=== PATIENT | male | born 1950 | race Caucasian/White ===

== ENCOUNTER → 2017-03-02 | Outpatient (CLI) | payer MEDICARE, BC ==
--- NOTE | 2017-03-02 12:30 | US ---
EXAMINATION TYPE: US carotid duplex BILAT DATE OF EXAM: 03/02/2017 COMPARISON: NONE CLINICAL HISTORY: 66-year-old male I65.29 Occlusion and stenosis of unspecified carotid. Dizziness. TECHNIQUE: Carotid duplex ultrasound examination. Indirect Doppler criteria was utilized. FINDINGS: Valadez scale images show no significant atherosclerotic change at the bifurcations. EXAM MEASUREMENTS: RIGHT: Peak Systolic Velocity (PSV) cm/sec ----- Right CCA: 94.3 ----- Right ICA: 92.1 ----- Right ECA: 86.7 ICA/CCA ratio: 1.0 RIGHT: End Diastole cm/sec ----- Right CCA: 26.0 ----- Right ICA: 27.1 ----- Right ECA: 14.7 LEFT: Peak Systolic Velocity (PSV) cm/sec ----- Left CCA: 82.9 ----- Left ICA: 68.7 ----- Left ECA: 66.9 ICA/CCA ratio: 0.8 LEFT: End Diastole cm/sec ----- Left CCA: 27.3 ----- Left ICA: 30.2 ----- Left ECA: 12.8 VERTEBRALS (direction of flow): Right Vertebral: Antegrade Left Vertebral: Antegrade Rhythm: Normal IMPRESSION: No hemodynamically significant stenosis appreciated in either internal carotid artery. Criteria for Assigning % of Stenosis / Diameter reduction (Estimation based on the indirect measurements of the internal carotid artery velocities (ICA PSV). 1. Normal (no stenosis)=ICA PSV < 125 cm/s: ratio < 2.0: ICA EDV<40 cm/s. 2. Less than 50% stenosis=ICA PSV < 125 cm/s: ratio < 2.0: ICA EDV<40 cm/s. 3. 50 to 69% stenosis=ICA PSV of 125 to 230 cm/s: ration 2.0 ? 4.0: ICA EDV 40-100 cm/s. 4. Greater than 70% stenosis to near occlusion= ICA PSV > 230 cm/s: ratio > 4.0: ICA EDV > 100 cm/s. 5. Near occlusion= ICA PSV velocities may be low or undetectable: variable ratio and ICA EDV. 6. Total occlusion=unable to detect flow.
== END | disposition home or self-care (01) ==
LOC: RADUSWWP 10:55
PROVIDERS: ATTEND Family Medicine
DX: I65.29 Occlusion and stenosis of unspecified carotid artery (principal)
CPT/HCPCS: 93880

== ENCOUNTER → 2018-06-23 | Outpatient (CLI) | payer MEDICARE ==
--- NOTE | 2018-06-23 15:18 | CT ---
EXAMINATION TYPE: CT chest w con DATE OF EXAM: 06/23/2018 COMPARISON: Radiograph 04/28/2018 HISTORY: 67-year-old male Chronic cough TECHNIQUE: Contiguous axial scanning of the chest after the administration of 100 mL of Isovue 300. Coronal/sagittal reconstructions performed. CT DLP: 295mGycm. Automatic exposure control utilized for a dose reduction. FINDINGS: Moderate bilateral gynecomastia. Heart normal size without pericardial effusion. Aorta normal caliber with conventional arch vessel branching anatomy. Scattered nonenlarged mediastinal lymph nodes. No thoracic lymphadenopathy by CT size criteria. Mild dependent atelectasis in the mid and lower lungs. 3 mm peripheral right midlung pulmonary nodule axial image 28. No consolidation or pleural effusion. Central airways appear clear. Visualized upper abdomen shows a hilar splenule in mild stool burden. Bones: Mild degenerative disc disease mid to lower thoracic spine. IMPRESSION: 1. Mild bilateral dependent atelectasis. Otherwise, no acute pulmonary process. 2. A 3 mm peripheral right midlung pulmonary nodule. One-year follow-up CT to reassess.
== END | disposition home or self-care (01) ==
LOC: RADCTMAIN 10:52
PROVIDERS: ATTEND Internal Medicine
DX: J98.11 Atelectasis (principal); R91.1 Solitary pulmonary nodule
CPT/HCPCS: 82565; 84520; 71260; 36415; Q9967

== ENCOUNTER → 2018-07-22 | Outpatient (CLI) | payer MEDICARE ==
[2018-07-22 11:44] LABS: Basophils % (A) 1 %; Eosinophils # (A) 0.1 k/uL (0-0.7); Eosinophils % (A) 1 %; HCT 40.7 % (39.0-53.0); HGB 13.5 gm/dL (13.0-17.5); Lymphocytes # (A) 2.1 k/uL (1.0-4.8); Lymphocytes % (A) 27 %; MCH 29.9 pg (25.0-35.0); MCHC 33.2 g/dL (31.0-37.0); Mean Platelet Volume 9.1; Monocytes # (A) 0.4 k/uL (0-1.0); Monocytes % (A) 6 %; Neutrophils % (A) 64 %; Platelet Count 166 k/uL (150-450); RBC 4.53 m/uL (4.30-5.90); WBC 7.8 k/uL (3.8-10.6)
[2018-07-22 18:15] LABS: Immunoglobulin E 8.62 IU/mL (0.00-114.00)
[2018-07-22 18:39] LABS: Cat Epith & Dander IgE <0.10 kU/L; Cockroach IgE <0.10 kU/L; Dermato. farinae IgE 0.16 kU/L; Dog Dander IgE <0.10 kU/L
[2018-07-22 18:41] LABS: Alternaria alternata IgE <0.10 kU/L; Birch IgE <0.10 kU/L; Maple (Box Elder) IgE <0.10 kU/L
[2018-07-22 18:42] LABS: Elm IgE <0.10 kU/L; Oak IgE <0.10 kU/L; Ragweed,Common IgE <0.10 kU/L
[2018-07-22 18:43] LABS: Red Top (Bentgrass) IgE 0.39 kU/L
[2018-07-23 10:56] LABS: IgG Subclass 3 48.3 mg/dL (11.0-85.0); IgG Subclass 4 10.4 mg/dL (3.0-175.0)
== END ==
LOC: LABWHC1 09:48
PROVIDERS: ATTEND Internal Medicine
DX: J68.3 Other acute and subacute respiratory conditions due to chemicals, gases, fumes and vapors (principal); J45.991 Cough variant asthma; K21.9 Gastro-esophageal reflux disease without esophagitis
CPT/HCPCS: 36415; 82785; 82787; 85025; 86003

== ENCOUNTER → 2018-07-25 | Outpatient (CLI) | payer MEDICARE ==
--- NOTE | 2018-07-25 16:10 | MR ---
EXAMINATION TYPE: MR shoulder RT wo con DATE OF EXAM: 07/25/2018 COMPARISON: None HISTORY: R shoulder pain TECHNIQUE: Multiplanar, multisequence imaging of the right shoulder is performed without contrast. FINDINGS: Rotator Cuff: Appears to be a perforation within the distal supraspinatus tendon. There is increased signal within the subacromial bursa on T2 weighted sequences. Subchondral cyst formation near the exp ected insertion of the supraspinatus tendon is present. Findings are suggestive for partial tear with out retraction. Infraspinatus and subscapularis tendons appear intact. Teres minor where visualized a ppears intact. Acromioclavicular Joint: No significant hypertrophy is present. Mild inferior spurring is present. Th is can contribute to impingement syndrome. Glenohumeral Joint: Humeral head articulates with the glenoid. Labrum: Superior glenoid labrum is poorly visualized. There is increased signal within this region. A nterior and posterior glenoid labrum is somewhat better visualization. Injury in degenerative change of the superior glenoid labrum should be considered. Biceps Tendon: Typical Long head of the biceps tendon is not identified. Tiny low intensity signal ar ea may be within the groove could be residual fibers. Fluid is within the biceps tendon groove. Corre late for biceps tendon tear or atrophy Bone marrow signal: No focal abnormal marrow signal is appreciated. Other: There is a moderate joint effusion. Subchondral cysts are evident within the humeral head IMPRESSION: 1. Findings suggestive of a partial tear of the supraspinatus tendon without retraction or muscle atr ophy. 2. Moderate joint effusion. 3. Subchondral cyst near the insertion of the supraspinatus tendon can be associated with tear. 4. Very little long head biceps tendon visualized with fluid within the bicipital groove. Partial tea r should be suspected.
== END | disposition home or self-care (01) ==
LOC: RADMRIMAIN 14:26
PROVIDERS: ATTEND Orthopaedic Surgery
DX: M25.411 Effusion, right shoulder (principal); M67.813 Other specified disorders of tendon, right shoulder

== ENCOUNTER 2018-08-16 08:49 | Day surgery (SDC) | payer MEDICARE ==
--- NOTE | 2018-08-15 09:02 | HP ---
HISTORY AND PHYSICAL CHIEF COMPLAINT: Right shoulder pain. HISTORY OF PRESENT ILLNESS: The patient is a 67-year-old, right-hand dominant, retired gentleman who presents with progressive right shoulder pain after a recent injury while pulling. He notes pain with overhead activity and at night. He has tried medications with only partial temporary relief. PAST MEDICAL HISTORY: Significant for reflux, hyperlipidemia, and Raynaud's. PAST SURGICAL HISTORY: Significant for previous carpal tunnel release, right rotator cuff repair, left rotator cuff repair, and colonoscopy. CURRENT ALLERGIES: He notes allergies to PENICILLIN. FAMILY HISTORY: Significant for cancer. SOCIAL HISTORY: Negative for current tobacco or alcohol use. REVIEW OF SYSTEMS: Sixteen point review of systems otherwise reviewed and is noncontributory. PHYSICAL EXAMINATION: On examination, the patient is approximately 5 foot 7, 185 pounds of mesomorphic habitus. HEENT exam is nonfocal. Neck is supple. On examination of his right shoulder, he is tender about the anterior subacromial space. He has moderate subacromial crepitus. 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 Active range of motion of the right shoulder, forward elevation, 155 degrees external rotation, with arm at side 70 degrees, internal rotation to L2. Motor strength is 5-/5 for abduction and external rotation. Impingement test, Neer test are positive. His distal neurovascular exam otherwise appears intact in the right upper extremity. MRI report for the right shoulder 07/25/2018 shows a partial tear of the supraspinatus tendon with a possible proximal biceps rupture. IMPRESSION: Symptomatic right rotator cuff tear/proximal biceps rupture. RECOMMENDATION: I talked to the patient at length regarding his condition along with treatment options. At this point, he is quite symptomatic and opts to proceed with surgery. We will plan to proceed with arthroscopic evaluation with possible biceps debridement along with rotator cuff repair versus debridement. Risks and benefits were discussed at length in layman's terms. We will likely perform that as an outpatient procedure. MMODL / IJN: [id number] /
[~2018-08-16 08:49] MED LIST: CLINDAMYCIN 900 MG in DEXTROSE 5% IN WATER 50 ML IVPB ONE; DEXAMETHASONE SOD PHOSPHATE 10 MG/ML 1 ML VIAL IV ONE; HYDROmorphone 0.5 MG/0.5 ML SYRINGE IVP PRN; LACTATED RINGERS 1,000 ML IV SCH; MIDAZOLAM (PF) 2 MG/2 ML VIAL IV PRN; ONDANSETRON 4 MG/2 ML VIAL IVP ONE
[2018-08-16] MEDS ORDERED: LIDOCAINE 1% 20 ML VIAL (10MG/ML) FOR IV START INTRADERMA ONE (09:39)
--- NOTE | 2018-08-16 10:21 | P.ONQ ---
Anesthesiology Proc Note - PNB - Peripheral Nerve Block Performed Right Interscalene Single Time Out Performed: Yes Procedure Start Time: 10:05 Procedure Stop Time: 10:11 Indication: Analgesia, Requested by physician Sedation Type: Sedate with meaningful contact maintained Preparation: Sterile Dressing Position: Supine Catheter: None Needle Types: Facet Needle Size: 50mm (2") Needle Gauge: 21 Injectate: 0.5% Ropivacaine (see comment for volume) (30 ml) Blood Aspirated: No Pain Paresthesia on Injection Noted: No Resistance on Injection: Normal Events: Uneventful and Well Tolerated
[2018-08-16] MEDS ORDERED: PROPOFOL 10 MG/ML 20 ML VIAL IV ONE (10:58)
[2018-08-16] MEDS ORDERED: SUCCINYLCHOLINE CHLORIDE 100 MG/5 ML SYR IV ONE (10:58)
[2018-08-16] MEDS ORDERED: LIDOCAINE 1% INJ 10MG/ML (20 ML MDV) ONE (10:58)
[2018-08-16] MEDS ORDERED: ROPIVACAINE 5 MG/ML 30 ML VIAL ONE (10:58)
[2018-08-16] MEDS ORDERED: MIDAZOLAM 2 MG/2 ML VIAL ONE (10:58)
[2018-08-16] MEDS ORDERED: EPINEPHrine (PF) 1 ML in SODIUM CHLORIDE 0.9% IRRIGATIO 3,000 ML IRRIGATION ONE ×8 (11:27)
--- NOTE | 2018-08-16 12:13 | P.OP ---
Date of Procedure: 08/16/18 Preoperative Diagnosis: Right shoulder symptomatic rotator cuff tear/proximal biceps rupture Postoperative Diagnosis: 1 cm full-thickness rotator cuff tear/proximal biceps rupture/type II superior labral tear Procedure(s) Performed: Right shoulder arthroscopic subacromial decompression/superior labral debridement with biceps debridement/rotator cuff repair Implants: Arthrex 5.5 mm swivel lock anchor 1 [facility] Surgeon: Harman Godwin Card Cutter Helper #1: Malik Cody Estimated Blood Loss (ml): 10 Pathology: none sent Condition: stable Disposition: PACU Indications for Procedure: The patient's a 67-year-old male who presents with a recent injury to his right shoulder with persistent pain and symptoms despite conservative measures. After discussion of the risks and benefits of operative intervention versus continued conservative measures he opted to proceed with surgery. Operative risks to include infection, neurovascular injury, development of blood clots, possible incomplete resolution of symptoms, possible postoperative stiffness, possible tendon rerupture and need for subsequent procedures was discussed. Informed consent was obtained. Operative Findings: As below Description of Procedure: The patient was brought to the operating room, and after induction of general anesthesia was placed in a beachchair position. A preoperative interscalene block was placed for postoperative analgesia. I examined the right shoulder. There was no gross block to passive motion or gross glenohumeral instability. The right upper extremity was prepped and draped in normal fashion. The bony outlines the acromion, distal clavicle, and coracoid process were outlined with a skin marker. The glenohumeral joint was inflated with 50 mL of saline util izing a spinal needle from posterior approach. A posterior portal was made through a 5 mm skin incision 1 cm medial and inferior to the posterior lateral border time. A blunt trocar was used to easily into the joint. Diagnostic arthroscopy was performed. An anterior portal was made just lateral to the coracoid process entering the joint above the subscapularis tendon. The subscapularis tendon appeared to be intact. Anterior labrum was intact. The inferior recess was inspected. The posterior labrum was intact. There was a rupture of the long head of the biceps involving interarticular portion. The remaining stump was debrided with a motorized shaver. A type II superior labral tear was noted and this was debrided back to stable base with a motorized shaver. On inspection the rotator cuff, a 1 cm full-thickness tear involving the supraspinatus was noted. A lateral portal was made 2 centimeters inferior to the anterior lateral border of the acromion. The soft tissue on the undersurface of the acromion was debrided with a motorized shaver and electrocautery clearly defining the anterior medial and lateral borders as well as the distal clavicle. An anterior inferior acromioplasty was performed with a motorized diaz starting anterolateral, then extending this posteriorly, then extending this medially. I converted to a flat acromion and this was verified in the posterior and lateral viewing portals. The greater tuberosity was lightly decorticating with a shaver down to a bleeding bony surface. A #2 fiber tape was passed through the rotator cuff with a scThermalTherapeuticSystemsion suture passer. These were then secured laterally with the 5.5 mm swivel lock anchor. Good purchase was obtained. Final arthroscopic view showed adequate compression at the footprint. The arthroscope was then removed. The portals were closed with simple 3-0 nylon sutures. A sterile dressing was applied in addition to an abductor brace. The patient was then awoken from general anesthesia and t ransferred to recovery room in good condition. Blood loss was estimated at 10 mL. No complications were incurred. Sponge and needle counts were correct in the case. Khanh LYLES assisted and the major components of the case to include arm positioning, anchor placement, and rotator cuff repair.
[2018-08-16 12:29] VITALS: TEMP 97
[2018-08-16 12:30] VITALS: RESP 16
[2018-08-16] MEDS ORDERED: ONDANSETRON 4 MG/2 ML VIAL IVP ONE (13:38)
[2018-08-16 14:06] VITALS: BP 135/84; PULSE 60
== END 2018-08-16 14:53 | disposition home or self-care (01) ==
LOC: OR 08:49
PROVIDERS: ATTEND Orthopaedic Surgery
DX: M75.101 Unspecified rotator cuff tear or rupture of right shoulder, not specified as traumatic (principal); S46.211A Strain of muscle, fascia and tendon of other parts of biceps, right arm, initial encounter; S43.431A Superior glenoid labrum lesion of right shoulder, initial encounter; X50.9XXA Other and unspecified overexertion or strenuous movements or postures, initial encounter; K21.9 Gastro-esophageal reflux disease without esophagitis; E78.5 Hyperlipidemia, unspecified; I73.00 Raynaud's syndrome without gangrene; J45.909 Unspecified asthma, uncomplicated; Z79.1 Long term (current) use of non-steroidal anti-inflammatories (NSAID); Z88.0 Allergy status to penicillin
CPT/HCPCS: 64415; 29826; 29827; C1713 ×2; C1894; J2250 ×2; J1100; J2405; J0171; J2001; J2795; J0330; J2704

== ENCOUNTER → 2019-03-17 | Day surgery (SDC) | payer MEDICARE ==
[2019-03-15 13:04] VITALS: BMI 28.8
[~2019-03-17] MED LIST changes: -CLINDAMYCIN 900 MG in DEXTROSE 5% IN WATER 50 ML IVPB ONE; -DEXAMETHASONE SOD PHOSPHATE 10 MG/ML 1 ML VIAL IV ONE; -HYDROmorphone 0.5 MG/0.5 ML SYRINGE IVP PRN; +LACTATED RINGERS 1,000 ML IV ONE; +LIDOCAINE 1% 20 ML VIAL (10MG/ML) FOR IV START INTRADERMA PRN; -MIDAZOLAM (PF) 2 MG/2 ML VIAL IV PRN; -ONDANSETRON 4 MG/2 ML VIAL IVP ONE; +PROPOFOL 10 MG/ML 20 ML VIAL IV ONE
[2019-03-17 09:22] VITALS: TEMP 96.7
--- NOTE | 2019-03-17 10:31 | P.PCN ---
Date of Procedure: 03/17/19 Procedure(s) Performed: BRIEF HISTORY: Patient is a 68-year-old pleasant white male scheduled for an elective colonoscopy as a part of evaluation of prior history of colon polyps. Last colonoscopy was 5 years ago. PROCEDURE PERFORMED: Colonoscopy. PREOPERATIVE DIAGNOSIS: History of colon polyps. IV sedation per Anesthesia. PROCEDURE: After informed consent was obtained, the patient, was brought into the endoscopy unit. IV sedation was administered by Anesthesia under continuous monitoring. Digital rectal examination was normal. Initially the Olympus CF-160 flexible video colonoscope was then inserted in the rectum, gradually advanced into the cecum without any difficulty. Careful examination was performed as the scope was gradually being withdrawn. Ileocecal valve and the appendiceal orifice were visualized and appeared normal. Prep was excellent. Mucosa of the cecum, ascending colon, transverse colon, descending colon, sigmoid colon, and rectum appeared normal. Retroflexion was performed in the rectum and no lesions were seen. The patient tolerated the procedure well. IMPRESSION: Normal-appearing colon from rectum to cecum with no evidence of colorectal neoplasia. RECOMMENDATIONS: Findings of this examination were discussed with the patient as well as his family. He was advised to have a repeat surveillance colonoscopy in 5 years from now because of the prior history of colon polyps.
[2019-03-17 10:35] VITALS: RESP 16
[2019-03-17 11:19] VITALS: BP 136/64; PULSE 67
== END ==
LOC: ORWHC2ENDO 09:00
PROVIDERS: ATTEND Internal Medicine Gastroenterology
DX: Z86.010 Personal history of colon polyps (principal); Z88.0 Allergy status to penicillin; Z98.890 Other specified postprocedural states; Z97.2 Presence of dental prosthetic device (complete) (partial)
CPT/HCPCS: 45378; J2704

== ENCOUNTER 2022-03-19 03:34 | Emergency (ER) | payer MEDICARE ==
[2022-03-19] MEDS ORDERED: SODIUM CHLORIDE 0.9% 1,000 ML IV STA (04:37)
[2022-03-19] MEDS ORDERED: KETOROLAC 15 MG/ML 1 ML VIAL IVP STA (04:37)
[2022-03-19] MEDS ORDERED: MORPHINE SULFATE 4 MG/ML SYRINGE IV STA (04:37)
[2022-03-19] MEDS ORDERED: ONDANSETRON 4 MG/2 ML VIAL IVP STA ×2 (04:37→09:08)
--- NOTE | 2022-03-19 04:37 | ED ---
Abdominal Pain HPI - General Source: patient, RN notes reviewed, old records reviewed Mode of arrival: ambulatory - History of Present Illness MD Complaint: abdominal pain, flank pain (Left-sided) -: hour(s) Location: LLQ, suprapubic, L flank Radiation: L flank Migration to: suprapubic Severity: severe Severity scale (1-10): 9 Quality: stabbing, sharp Consistency: constant Improves With: nothing Worsens With: nothing Associated Symptoms: nausea Treatments Prior to Arrival: other (0) <Kapil Asif - Last Filed: 03/19/22 07:06> <Collins Fuentes - Last Filed: 03/19/22 09:20> - General Chief Complaint: Urogenital Stated Complaint: Left side pain Time Seen by Provider: 03/19/22 04:05 - History of Present Illness Initial Comments: This is a 71-year-old male to the emergency department for evaluation of severe abdominal pain severe left lower quadrant abdominal pain in his testicles that woke him up from sleep. Patient states he has had kidney stones before this feels different this feels more like episode disease had of pancreatitis. Patient has no fevers no travel history no sick contacts no other complaints (Kapil Asif) - Related Data Previous Rx's Medication Instructions Recorded Ondansetron Odt [Zofran Odt] 4 mg PO Q8HR PRN 2 Days #6 tab 03/19/22 Tamsulosin HCl [Flomax] 0.4 mg PO DAILY 7 Days #7 capsule 03/19/22 Allergies Allergy/AdvReac Type Severity Reaction Status Date / Time Penicillins Allergy Swelling Verified 03/15/19 12:56 Review of Systems ROS Other: All systems not noted in ROS Statement are negative. <Kapil Asif - Last Filed: 03/19/22 07:06> ROS Other: All systems not noted in ROS Statement are negative. <Collins Fuentes - Last Filed: 03/19/22 09:20> ROS Statement: Those systems with pertinent positive or pertinent negative responses have been documented in the HPI. Past Medical History Past Medical History: Asthma, Osteoarthritis (OA) Additional Past Medical History / Comment(s): COLON POLYPS. NO INHALER USE FOR ASTHMA (WORK RELATED, CHEMICALS, PATIENT WAS A [employer]). History of Any Multi-Drug Resistant Organisms: None Reported Past Surgical History: Orthopedic Surgery Additional Past Surgical History / Comment(s): ERIKA. SHOULDER SURGERIES. LEFT WRIST CARPAL TUNNEL. EYELID SURGERY., COLONOSCOPY, RT SHOULDER SX-08/2018 Past Anesthesia/Blood Transfusion Reactions: No Reported Reaction Additional Past Anesthesia/Blood Transfusion Reaction / Comment(s): SLOW TO WAKE UP. Past Psychological History: No Psychological Hx Reported Past Alcohol Use History: Rare Past Drug Use History: None Reported - Past Family History Father Family Medical History: Cancer Additional Family Medical History / Comment(s): MELANOMA, SALIVARY <Kapil Asif - Last Filed: 03/19/22 07:06> General Exam General appearance: alert, in no apparent distress Head exam: Present: atraumatic, normocephalic, normal inspection Eye exam: Present: normal appearance, PERRL, EOMI. Absent: scleral icterus, conjunctival injection, periorbital swelling ENT exam: Present: normal exam, mucous membranes moist Neck exam: Present: normal inspection. Absent: tenderness, meningismus, lymphadenopathy Respiratory exam: Present: normal lung sounds bilaterally. Absent: respiratory distress, wheezes, rales, rhonchi, stridor Cardiovascular Exam: Present: regular rate, normal rhythm, normal heart sounds. Absent: systolic murmur, diastolic murmur, rubs, gallop, clicks GI/Abdominal exam: Present: soft, normal bowel sounds. Absent: distended, tenderness, guarding, rebound, rigid Extremities exam: Present: normal inspection, full ROM, normal capillary refill. Absent: tenderness, pedal edema, joint swelling, calf tenderness Back exam: Present: normal inspection Neurological exam: Present: alert, oriented X3, CN II-XII intact Psychiatric exam: Present: normal affect, normal mood Skin exam: Present: warm, dry, intact, normal color. Absent: rash <Kapil Asif - Last Filed: 03/19/22 07:06> Course <Kapil Asif Last Filed: 03/19/22 07:06> Vital Signs 03/19/22 03/19/22 03:59 09:16 Temperature 98 F 98.2 F Pulse Rate 70 78 Respiratory 19 16 Rate Blood Pressure 126/88 139/74 O2 Sat by Pulse 100 98 Oximetry - Reevaluation(s) Reevaluation #1: 03/19/22 07:07 Medical records reviewed (Kapil Asif) Reevaluation #2: 03/19/22 07:07 Patient's pain is controlled (Kapil Asif) Medical Decision Making - Lab Data Result diagrams: 03/19/22 04:47 03/19/22 04:47 <Kapil Asif - Last Filed: 03/19/22 07:06> - Lab Data Result diagrams: 03/19/22 04:47 03/19/22 04:47 <Collins Fuentes - Last Filed: 03/19/22 09:20> - Medical Decision Making Patient was sign out to me pending results of CT imaging. They suspected left- sided kidney stone which was supported by CT imaging. CT is interpreted by myself revealed a 3 mm minimally obstructive uropathy on the left. There was also questionable scarring versus other etiologies seen in the patient's pancr eas. Remainder the labs are unremarkable except for hematuria. No signs of infection at this time. On reevaluation, patient's pain is improved, nausea is controlled. We discussed results of his imaging including the pancreas findings. He does have a history of pancreatitis which she attributes to these findings. I did recommend that he obtain repeat imaging in 3-6 months which he was in agreement. He'll be discharged home with outpatient urology follow-up. He will begin Flomax, Zofran. [id number] analgesic medication should manage his pain. He was in agreement this plan. Strict return precautions were discussed. I will provide the patient with a prescription for Flomax, ODT Zofran. I instructed the patient to follow up with their PCP in the next 1-3 days. I pr ovided contact information for follow up with urology. I explained that the patient should return to the emergency department if they experience any worsening symptoms. Strict return precautions were discussed with the patient. The patient expressed understanding of these instructions. I answered all questions that the patient had. The patient was discharged home in good condition with their prescriptions and follow up information. (Collins Fuentes) - Lab Data Lab Results 03/19/22 03/19/22 03/19/22 Range/Units 04:47 04:47 07:31 WBC 8.7 (3.8-10.6) k/uL RBC 4.36 (4.30-5.90) m/uL Hgb 13.5 (13.0-17.5) gm/dL Hct 38.3 L (39.0-53.0) % MCV 88.0 (80.0-100.0) fL MCH 31.1 (25.0-35.0) pg MCHC 35.3 (31.0-37.0) g/dL RDW 12.9 (11.5-15.5) % Plt Count 168 (150-450) k/uL MPV 10.4 Neutrophils % 77 % Lymphocytes % 15 % Monocytes % 5 % Eosinophils % 1 % Basophils % 1 % Neutrophils # 6.7 (1.3-7.7) k/uL Lymphocytes # 1.3 (1.0-4.8) k/uL Monocytes # 0.5 (0-1.0) k/uL Eosinophils # 0.1 (0-0.7) k/uL Basophils # 0.0 (0-0.2) k/uL Sodium 140 (137-145) mmol/L Potassium 4.0 (3.5-5.1) mmol/L Chloride 105 (98-107) mmol/L Carbon Dioxide 29 (22-30) mmol/L Anion Gap 6 mmol/L BUN 16 (9-20) mg/dL Creatinine 1.10 (0.66-1.25) mg/dL Est GFR (CKD-EPI)AfAm 78 (>60 ml/min/1.73 sqM) Est GFR (CKD-EPI)NonAf 68 (>60 ml/min/1.73 sqM) Glucose 110 H (74-99) mg/dL Calcium 8.5 (8.4-10.2) mg/dL Total Bilirubin 0.9 (0.2-1.3) mg/dL AST 29 (17-59) U/L ALT 23 (4-49) U/L Alkaline Phosphatase 67 (38-126) U/L Total Protein 6.8 (6.3-8.2) g/dL Albumin 4.2 (3.5-5.0) g/dL Amylase 55 (30-110) U/L Lipase 123 (23-300) U/L Urine Color Yellow Urine Appearance Clear (Clear) Urine pH 8.5 H (5.0-8.0) Ur Specific [place] 1.023 (1.001-1.035) Urine Protein 1+ H (Negative) Urine Glucose (UA) Negative (Negative) Urine Ketones Negative (Negative) Urine Blood Moderate H (Negative) Urine Nitrite Negative (Negative) Urine Bilirubin Negative (Negative) Urine Urobilinogen <2.0 (<2.0) mg/dL Ur Leukocyte Esterase Negative (Negative) Urine RBC 181 H (0-5) /hpf Urine WBC 2 (0-5) /hpf Urine Mucus Occasional H (None) /hpf Disposition <Kapil Asif - Last Filed: 03/19/22 07:06> Is patient prescribed a controlled substance at d/c from ED?: No Time of Disposition: 08:20 <Collins Fuentes - Last Filed: 03/19/22 09:20> Clinical Impression: Kidney stone on left side Disposition: HOME SELF-CARE Condition: Good Instructions (If sedation given, give patient instructions): Kidney Stones (ED) Additional Instructions: follow up for repeat CT imaging for pancreas scarring/concern for rule out cancer. Prescriptions: Tamsulosin HCl [Flomax] 0.4 mg PO DAILY 7 Days #7 capsule Ondansetron Odt [Zofran Odt] 4 mg PO Q8HR PRN 2 Days #6 tab PRN Reason: Nausea Referrals: Mina Will DO [Primary Care Provider] - 1-2 days Jared Lazo MD [STAFF PHYSICIAN] - 1-2 days
[2022-03-19 04:56] LABS: Basophils % (A) 1 %; Eosinophils # (A) 0.1 k/uL (0-0.7); Eosinophils % (A) 1 %; HCT 38.3 % (39.0-53.0); HGB 13.5 gm/dL (13.0-17.5); Lymphocytes # (A) 1.3 k/uL (1.0-4.8); Lymphocytes % (A) 15 %; MCH 31.1 pg (25.0-35.0); MCHC 35.3 g/dL (31.0-37.0); Mean Platelet Volume 10.4; Monocytes # (A) 0.5 k/uL (0-1.0); Monocytes % (A) 5 %; Neutrophils # (A) 6.7 k/uL (1.3-7.7); Neutrophils % (A) 77 %; Platelet Count 168 k/uL (150-450); RBC 4.36 m/uL (4.30-5.90); RDW 12.9 % (11.5-15.5); WBC 8.7 k/uL (3.8-10.6)
[2022-03-19 05:41] LABS: Albumin 4.2 g/dL (3.5-5.0); Calcium 8.5 mg/dL (8.4-10.2); Total Bilirubin 0.9 mg/dL (0.2-1.3); Total Protein 6.8 g/dL (6.3-8.2)
[2022-03-19] MEDS ORDERED: MORPHINE SULFATE 4 MG/ML SYRINGE IVP STA (06:29)
[2022-03-19] MEDS ORDERED: KETOROLAC 15 MG/ML 1 ML VIAL IM STA (06:31)
--- NOTE | 2022-03-19 07:32 | CT ---
EXAMINATION TYPE: CT abdomen pelvis wo con DATE OF EXAM: 03/19/2022 COMPARISON: None HISTORY: 71-year-old male LEft side pain, history of renal stones 20 years ago and history of pancrea titis. CT DLP: 593.9 mGycm. Automated exposure control for dose reduction was used. TECHNIQUE: Contiguous axial scanning of the abdomen and pelvis without IV contrast. Coronal and sagit samara reconstructions performed. FINDINGS: Heart normal size without pericardial effusion. Strandy dependent atelectasis in both lower lungs. Indeterminate 9 mm hypodensity right hepatic dome, possibly a tiny cyst. Otherwise, noncontrast appearance of the gallbladder, adrenal glands, right kidney, and spleen with h ilar splenule show no gross abnormality. There is possible round 1.1 cm lesion within the inferior junction of the pancreatic body and tail, a xial image 28 versus nodular pancreatic parenchyma, recommend 3-6 month follow-up CT utilizing IV con trast to reassess this area. There are 4-5 punctate 2 mm calculi within the left kidney. Mild fullness of the left renal collecting system and a 3 mm distal left ureteral calculus just prior to the UVJ. Mild atherosclerotic calcifications infrarenal abdominal ureter without aneurysm. No dilated small bowel, free fluid, or free air. No mesenteric or retroperitoneal lymphadenopathy. Appendix not clearly identified. No secondary findings of acute appendicitis in the right lower quadr ant. There is mild overall stool burden. No pericolonic inflammatory change. Bladder partially distended. Prostate gland enlargement 5.1 cm wide. Multiple pelvic phleboliths. No abnormal fluid collection in the pelvis or pelvic lymphadenopathy. Bones: Moderate degenerative change of both hips. Hypertrophic facet arthropathy mid to lower lumbar spine with grade 1 anterolisthesis L4-L5. IMPRESSION: 1. A 3 mm stone at the distal left ureter just prior to the UVJ where a minimal obstructive uropathy . Additional punctate 2 mm nonobstructive calculi within the left kidney. 2. Questionable round 1.1 cm lesion at the junction of the pancreatic body and tail versus nodular p ancreatic parenchyma. 3-6 month follow-up CT with IV contrast recommended to exclude an early mass he re. 3. Prostatomegaly at 5.1 cm wide. Correlate for any BPH symptoms.
[2022-03-19 08:13] LABS: Appearance,Urine Clear (Clear); Bilirubin,Urine Negative (Negative); Blood,Urine Moderate (Negative); Color,Urine Yellow; Glucose,Urine (UA) Negative (Negative); Ketones,Urine Negative (Negative); Leukocyte Esterase,Urine Negative (Negative); Mucus,Urine Occasional /hpf; Nitrite,Urine Negative (Negative); PH, Urine 8.5 (5.0-8.0); Protein,Urine 1+ (Negative); RBC,Urine 181 /hpf (0-5); Specific Gravity,Urine 1.023 (1.001-1.035); Urobilinogen,Urine <2.0 mg/dL (<2.0); WBC,Urine 2 /hpf (0-5)
[2022-03-19] MEDS ORDERED: TAMSULOSIN 0.4 MG CAP.ER.24H PO STA (08:36)
[2022-03-19] MEDS ORDERED: HYDROcodone/APAP 5-325MG 1 EACH TAB PO STA (08:37)
[2022-03-19] MEDS ORDERED: ACET/COD 300 MG/30 MG STARTER PACK 6 TAB BTL PO STA (08:42)
[2022-03-19 09:17] VITALS: BP 139/74; PULSE 78; RESP 16; TEMP 98.2
== END 2022-03-19 09:16 | disposition home or self-care (01) ==
LOC: EC 03:34
DX: N20.0 Calculus of kidney (principal); J45.909 Unspecified asthma, uncomplicated; Z88.0 Allergy status to penicillin
CPT/HCPCS: 36415; 80053; 82150; 83690; 85025; 81001; 74176; 99284; 96372; 96374; 96361 ×3; J2405; J1885

== ENCOUNTER 2023-01-20 08:52 | Day surgery (SDC) | payer MEDICARE ==
[2023-01-14 15:26] VITALS: BMI 28.5
--- NOTE | 2023-01-18 10:58 | P.HPOR ---
History of Present Illness H&P Date: 01/18/23 Subjective: This is a 72 year old male that presents today for initial evaluation regarding a several year history of progressively worsening right hand paresthesias in the thumb, index, middle and ring fingers. He states the fingers often feel cold and pale as well, even in warm weather. The patient has tried NSAIDs, rest, gloves and wraps with little relief. He had a left open carpal tunnel release [place] [address] Polo that he has not had any issues with. They deny any inciting event or neck pain. He denies any tobacco or nicotine use. He states over the last several months his numbness in the middle and ring finger is now constant at the tips of the fingers and he is noticing weakness. Physical Examination: RUE: AIN/PIN/Radial/Ulnar/Median motor intact. Radial/Ulnar/Median SILT. 2+/4 Radial/Ulnar pulses palpated. 5/5 APB, 5/5 FDI. Negative Finkelsteins, negative CMC grind, positive Durkan's compression. Imaging: X-rays of the right hand, 3 view taken in the office today demonstrate no abnorm ality. Impression: 1.) Right carpal tunnel syndrome 2.) Raynaud's syndrome. Plan: Diagnosis and treatment options were discussed with the patient. The patient has failed conservative treatment and would like to pursue a right endoscopic vs open carpal tunnel release. Risks and benefits of surgery including bleeding, infection, damage to surrounding tissue, need for further surgery, possible need to convert to open procedure, residual numbness were discussed and the patient wished to go forward with surgery. In regards to his Raynaud's we discussed cold avoidance and glove wear. CC: Mina Lovell DO Orthopedic Hand/Upper Extremity Surgeon Past Medical History Past Medical History: Asthma, Osteoarthritis (OA) Additional Past Medical History / Comment(s): REACTIVE AIRWAY DISEASE DUE TO WORK EXPOSURE History of Any Multi-Drug Resistant Organisms: None Reported Past Surgical History: Orthopedic Surgery Additional Past Surgical History / Comment(s): ERIKA. SHOULDER SURGERIES, LEFT WRIST CARPAL TUNNEL, EYELID SURGERY, COLONOSCOPY Past Anesthesia/Blood Transfusion Reactions: No Reported Reaction Additional Past Anesthesia/Blood Transfusion Reaction / Comment(s): SLOW TO WAKE UP. Past Psychological History: No Psychological Hx Reported Smoking Status: Never smoker Past Alcohol Use History: Occasional Past Drug Use History: None Reported - Past Family History Father Family Medical History: Cancer Additional Family Medical History / Comment(s): MELANOMA, SALIVARY Medications and Allergies Home Medications Medication Instructions Recorded Confirmed Type Albuterol Nebulized [Ventolin 2.5 mg INHALATION DIRECTED PRN 01/14/23 01/14/23 History Nebulized] Allergies Allergy/AdvReac Type Severity Reaction Status Date / Time Penicillins Allergy Swelling Verified 01/14/23 15:09 Physical Examination Osteopathic Statement: *. No significant issues noted on an osteopathic structural exam other than those noted in the History and Physical/Consult.
[~2023-01-20 08:52] MED LIST changes: +HYDROmorphone 0.5 MG/0.5 ML SYRINGE IVP PRN; -LACTATED RINGERS 1,000 ML IV ONE; +LIDOCAINE 1% (10MG/ML) FOR IV START INTRADERMA PRN; -LIDOCAINE 1% 20 ML VIAL (10MG/ML) FOR IV START INTRADERMA PRN; +ONDANSETRON 4 MG/2 ML VIAL IVP ONE; -PROPOFOL 10 MG/ML 20 ML VIAL IV ONE; +Pre Op ABX Message 1 EACH MISC MISCELLANE ONE
[2023-01-20 09:33] VITALS: TEMP 96.9
[2023-01-20] MEDS ORDERED: PROPOFOL 10 MG/ML 20 ML VIAL IV ONE (09:51)
[2023-01-20] MEDS ORDERED: fentaNYL (PF) 50 MCG/ML 2 ML AMP ONE (09:51)
[2023-01-20] MEDS ORDERED: MIDAZOLAM 2 MG/2 ML VIAL ONE (09:51)
[2023-01-20] MEDS ORDERED: BUPIVACAINE (PF) 0.5% 30 ML VIAL SQ ONE (10:05)
[2023-01-20] MEDS ORDERED: LIDOCAINE 1% INJ 10MG/ML (20 ML MDV) SQ ONE (10:05)
--- NOTE | 2023-01-20 10:10 | P.OP ---
Date of Procedure: 01/20/23 Preoperative Diagnosis: Right carpal tunnel syndrome Postoperative Diagnosis: Right carpal tunnel syndrome Procedure(s) Performed: Right endoscopic carpal tunnel release Anesthesia: MAC Surgeon: Nathan Chapa Nurse Clinical #1: Jonathon Ariza Estimated Blood Loss (ml): 0 Pathology: none sent Condition: stable Disposition: PACU Description of Procedure: This is a 72 year old male who presents today for a right endoscopic carpal tunnel release after having failed conservative treatment in the past. Risks and benefits of surgery were discussed with the patient including bleeding, damage to surrounding tissue, infection, need to convert to open procedure, need for further surgery as well as risks of anesthesia including pulmonary embolism and even and the patient wished to proceed with surgical intervention. The patients was seen in the pre-operative area by myself. Consent and H&P were completed and updated. The correct extremity was marked in the pre-operative area by myself and all other questions were answered. Operative Narrative: The patient was brought to the operating room by the department of anesthesia. They remained on the portable stretcher and a rolling hand table was brought to the side of the operative extremity. Pre-operative time out was performed indicating the correct patient, procedure and laterality. All in the room agreed. The patient was then drifted off to sleep by the department of anes thesia. MAC anesthesia was utilized and a 50:50 mixture of 1% Lidocaine and 0.5% bupivacaine was injected into the subcutaneous tissues of the palmar skin, 8ccs total. A nonsterile tourniquet was then applied to the operative extremity and the right upper extremity was then prepped and draped in normal sterile fashion. The operative extremity was the exsanguinated with an esmarch bandage and the tourniquet was inflated to 250mmHg. 15 blade scalpel was utilized to make a transverse incision on the palmar skin just ulnar to the palmaris longus tendon at the level of the distal wrist crease. Ragnell retractor was then placed radially and blunt dissection was performed to reveal the distal forearm fascia. This was lifted with fine Singh pick ups and Littler tenotomy scissors were then used to open the forearm fascia transversely and a double skin hook was then placed. Hamate finder was placed into the carpal tunnel and then sequential sized dilators were inserted followed by the synovial elevator to separate the flexor tenosynovium from the undersurface of the transverse carpal ligament and a washboard texture was felt. The Micro[employer]ire endoscopic carpal tunnel release system gun was the then inserted into the carpal tunnel hugging the deep portion of the transverse carpal ligament in line with the base of the ring finger. Transverse fibers of the ligament were directly visualized. Pressure was applied on the palm to reveal the distal extent of the transverse carpal ligament. The blade was then deployed and the distal half of the transverse carpal ligament was released. The scope was then brought distal again and remaining transverse fibers were incised with the blade. The proximal half of the transverse carpal ligament was then divided and again the scope was advanced distal and remaining transverse fibers were incised with the blade. The radial and ulnar leaflets were directly visualized and mobile consistent with complete release. Tenotomy scissors were then util ized to release the remaining distal forearm fascia under direct visualization taking care to preserve the palmar cutaneous branch of the median nerve. Skin closure was performed with interrupted 4-0 Monocryl suture followed by steri strips. Sterile dressing was applied consisting of 4x4s, Webril, and an gregg bandage. Tourniquet was let down and the hand immediately was well perfused. The patient was then woken by the department of anesthesia and transferred to PACU in stable condition. Jonathon LYLES was present for the case in its entirety and assisted in major portions of the case and protection of vital neurovascular structures. Nathan Chapa D.O. Orthopedic Hand/Upper Extremity Surgeon
[2023-01-20 11:00] VITALS: RESP 16
[2023-01-20 11:53] VITALS: BP 128/78; PULSE 65
== END 2023-01-20 11:37 | disposition home or self-care (01) ==
LOC: OR 08:52
PROVIDERS: ATTEND Orthopaedic Surgery Hand Surgery
DX: G56.01 Carpal tunnel syndrome, right upper limb (principal); I73.00 Raynaud's syndrome without gangrene; J45.909 Unspecified asthma, uncomplicated; M19.90 Unspecified osteoarthritis, unspecified site; F10.90 Alcohol use, unspecified, uncomplicated; Z88.0 Allergy status to penicillin; Z98.890 Other specified postprocedural states
CPT/HCPCS: 29848; J2250; J2405; J2001; J3010; J2704; J0665

== ENCOUNTER → 2023-03-17 | Outpatient (CLI) | payer MEDICARE ==
--- NOTE | 2023-03-19 06:00 | MR ---
EXAMINATION TYPE: MR knee LT wo con DATE OF EXAM: 03/17/2023 COMPARISON: Outside left knee x-ray July 09, 2022 HISTORY: Left knee pain and swelling x10 months, after slip and fall injury TECHNIQUE: Multiplanar, multisequence images of the knee is performed without IV contrast. FINDINGS: MEDIAL MENISCUS: Medial bulging medial meniscus on coronal images Globular and horizontal increased s ignal posterior horn likely abuts the inferior articular surface extension image 27. LATERAL MENISCUS: Subtle increased signal centered anterior horn and central body does not definitive ly extend to articular surface. CRUCIATE LIGAMENTS: The anterior and posterior cruciate ligaments are intact and unremarkable. COLLATERAL LIGAMENTS: The medial collateral ligament and lateral collateral ligament complex are inta ct. Mild fluid signal surrounds the medial collateral ligament. EXTENSOR MECHANISM: Visualized quadriceps and patellar tendons are intact. Bony spur anterior superio r patella at the distal quadriceps tendon insertion. EFFUSION: Small size suprapatellar joint effusion. POPLITEAL CYST: Small leaking septated popliteal/day cyst. TRICOMPARTMENT SPACES: Mild to moderate tricompartment joint space loss with mild spurring. CARTILAGE: Chondromalacia patella with some cartilaginous loss in the posterior lower pole. Some Cart ilaginous loss medial tibiofemoral compartment is seen. BONE MARROW SIGNAL: No focal abnormal marrow signal is appreciated. OTHER: No additional significant abnormality is appreciated. IMPRESSION: 1. Full-thickness tear posterior horn medial meniscus. 2. Intrasubstance tear involving anterior horn and central body of lateral meniscus. 3. Mild MCL sprain injury. 4. Fairly moderate tricompartment degenerative changes are seen as detailed above. 5. Small suprapatellar joint effusion. 6. Small leaking septated popliteal cyst.
== END | disposition home or self-care (01) ==
LOC: RADMRIMAIN 18:48
PROVIDERS: ATTEND Orthopaedic Surgery
DX: S83.242A Other tear of medial meniscus, current injury, left knee, initial encounter (principal); S83.282A Other tear of lateral meniscus, current injury, left knee, initial encounter; M17.12 Unilateral primary osteoarthritis, left knee; S83.412A Sprain of medial collateral ligament of left knee, initial encounter; M25.462 Effusion, left knee; M71.22 Synovial cyst of popliteal space [Baker], left knee

== ENCOUNTER 2023-04-30 06:00 | Day surgery (SDC) | payer MEDICARE ==
--- NOTE | 2023-04-29 08:47 | P.HPOR ---
History of Present Illness H&P Date: 04/29/23 Chief Complaint: Left knee pain The patient is a 72-year-old retired male presents with progressive left knee pain after an injury earlier in the year. He notes medial and anterior pain with walking and weightbearing activities. He notes buckling and locking. He is having nighttime symptoms. He's tried medications in addition to an injection was only partial temporary relief. He notes daily pain that limits his normal function and activities. Review of Systems As per HPI Past Medical History Past Medical History: Asthma, Osteoarthritis (OA) Additional Past Medical History / Comment(s): COLON POLYPS. 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 History of Any Multi-Drug Resistant Organisms: None Reported Past Surgical History: Orthopedic Surgery Additional Past Surgical History / Comment(s): ERIKA. SHOULDER SURGERIES. LEFT WRIST CARPAL TUNNEL. EYELID SURGERY., COLONOSCOPY, RT SHOULDER SX-08/2018. Past Anesthesia/Blood Transfusion Reactions: No Reported Reaction, Postoperative Nausea & Vomiting (PONV) Additional Past Anesthesia/Blood Transfusion Reaction / Comment(s): SLOW TO WAKE UP. Past Psychological History: No Psychological Hx Reported Smoking Status: Never smoker Past Alcohol Use History: Rare Past Drug Use History: None Reported - Past Family History Father Family Medical History: Cancer Additional Family Medical History / Comment(s): MELANOMA, SALIVARY Medications and Allergies Home Medications Medication Instructions Recorded Confirmed Type Albuterol Nebulized [Ventolin 2.5 mg INHALATION DIRECTED PRN 01/14/23 04/26/23 History Nebulized] Allergies Allergy/AdvReac Type Severity Reaction Status Date / Time Penicillins Allergy Swelling Verified 01/20/23 09:15 Physical Examination - Knee left Appearance: effusion Effusion grade: grade 1 Tenderness with palpation: anterior, medial Pain: throughout ROM Gait: limping ROM: extension: -10 degrees ROM: flexion: 120 degrees Crepitus with motion: Yes Strength: extension: 5/5 Strength: flexion: 5/5 Meniscal tests: medial meniscal tests: positive, medial joint line pain: positive Results The patient is a well-developed well-nourished male approximately 5 foot 7, 185 pounds of mesomorphic Khan. HEENT exam is nonfocal, neck is supple. He has painless passive motion of his left hip. Straight leg raise is negative. He's tender about the medial joint line of the left knee. Collaterals are stable, Terra is negative, Carlos Alberto's elicits medial pain. His distal neurovascular appears intact in the left lower extremity. - Diagnostic results Knee MRI: image reviewed (MRI of the left knee shows a posterior medial meniscal tear.) Assessment and Plan Assessment: Left knee internal derangementsymptomatic medial meniscal tear Plan: I talked to the patient at length regarding his condition along with treatment options. At this point he is having persistent pain and mechanical symptoms after this acute injury despite attempted conservative measures. After a thorough discussion he opted to proceed with surgery. We will plan to proceed with left knee arthroscopy with possible partial medial meniscectomy. We will likely perform that as an outpatient procedure. Risks and benefits were discussed at length in layman's terms.
[2023-04-30] MEDS ORDERED: ONDANSETRON 4 MG/2 ML VIAL IVP ONE (06:13)
[2023-04-30] MEDS ORDERED: droPERidol 5 MG/2 ML VIAL IVP ONE (06:13)
[2023-04-30] MEDS ORDERED: DEXAMETHASONE SOD PHOSPHATE 4 MG/ML 1 ML VIAL IV ONE (06:13)
[2023-04-30] MEDS ORDERED: LIDOCAINE 1% (10MG/ML) FOR IV START INTRADERMA PRN (06:13)
[2023-04-30] MEDS ORDERED: HYDROmorphone 0.5 MG/0.5 ML SYRINGE IVP PRN (07:00)
[2023-04-30] MEDS: LACTATED RINGERS 1,000 ML IV SCH ×2 (07:07→08:06)
[2023-04-30 07:13] VITALS: TEMP 96.8
[2023-04-30] MEDS ORDERED: PHENYLEPHRINE 10 MG/ML VIAL ONE (08:00)
[2023-04-30] MEDS ORDERED: PROPOFOL 10 MG/ML 20 ML VIAL IV ONE (08:00)
[2023-04-30] MEDS ORDERED: MIDAZOLAM 2 MG/2 ML VIAL ONE (08:00)
[2023-04-30] MEDS ORDERED: fentaNYL (PF) 50 MCG/ML 2 ML AMP ONE (08:00)
[2023-04-30] MEDS ORDERED: LIDOCAINE 1% INJ 10MG/ML (20 ML MDV) ONE (08:00)
[2023-04-30] MEDS ORDERED: EPINEPHrine (PF) 1 ML in SODIUM CHLORIDE 0.9% IRRIGATIO 3,000 ML IRRIGATION ONE (08:07)
--- NOTE | 2023-04-30 08:56 | P.OP ---
Date of Procedure: 04/30/23 Preoperative Diagnosis: Left knee internal derangement Postoperative Diagnosis: Left knee posterior medial meniscal tear/anterior lateral meniscal tear Procedure(s) Performed: Left knee arthroscopic partial medial meniscectomy/partial lateral meniscectomy Anesthesia: GRANTA Surgeon: Harman Godwin Estimated Blood Loss (ml): 10 Pathology: none sent Condition: stable Disposition: PACU Indications for Procedure: The patient's a 72-year-old male who presents with progressive left knee pain and mechanical symptoms despite conservative measures. A discussion of the risks and benefits of operative intervention versus continued conservative measures was made with the patient. He opted to proceed with surgery. Operative risks to include infection, neurovascular injury, development of blood clots, possible incomplete resolution of symptoms, possible worsening of symptoms and need for subsequent procedures was discussed. Informed consent was obtained. Operative Findings: As below Description of Procedure: The patient was brought to the operating room, and after induction of general anesthesia examined the left knee. Collaterals were stable, Terra was negative, and posterior drawer was negative. The left lower extremity was prepped and draped in a normal fashion. A superior lateral portal was made through a 3 mm skin incision superior and lateral to the patella. This was used for outflow. A lateral portal was made through a 5 mm vertical skin incision lateral to the patella tendon above the joint line. Diagnostic arthroscopy was performed. On inspection of the medial compartment, a complex tear involving the posterior horn of the medial meniscus in the white-red junction was noted. This was debrided back to a stable base with straight baskets and a motorized shaver. The remaining medial meniscus was stable and intact. Grade 2-3 chondral changes were noted diffusely in the medial compartment. On inspection of the notch, the anterior cruciate ligament appeared to be intact. On inspection of the lateral compartment, a small radial tear involving the anterior horn of the lateral meniscus in the white-white junction was noted. This debrided back to stable base with a motorized shaver. The remaining lateral meniscus was stable and intact.. On inspection of the patellofemoral articulation, chondral fibrillation was noted however no loose chondral fragments were present.. The gutters were clear debris. The knee was then thoroughly irrigated. The portals were closed with Steri-Strips. A sterile dressing was applied in addition to a compression stocking. The patient was a woken from general anesthesia and transferred to recovery room in good condition. Blood loss was estimated at 10 mL. No complications were incurred.
[2023-04-30] MEDS ORDERED: HYDROcodone/APAP 5-325MG 1 EACH TAB PO ONE (10:20)
[2023-04-30] MEDS ORDERED: HYDROcodone/APAP 5-325MG 1 EACH TAB ONE (10:20)
[2023-04-30 10:30] VITALS: RESP 16
[2023-04-30 10:55] VITALS: BP 136/72; PULSE 64
== END 2023-04-30 12:58 | disposition home or self-care (01) ==
LOC: OR 06:00
PROVIDERS: ATTEND Orthopaedic Surgery
DX: S83.242A Other tear of medial meniscus, current injury, left knee, initial encounter (principal); S83.282A Other tear of lateral meniscus, current injury, left knee, initial encounter; M19.90 Unspecified osteoarthritis, unspecified site; J45.909 Unspecified asthma, uncomplicated; F10.90 Alcohol use, unspecified, uncomplicated; Z88.0 Allergy status to penicillin; Z79.51 Long term (current) use of inhaled steroids; Z79.899 Other long term (current) drug therapy; X58.XXXA Exposure to other specified factors, initial encounter
CPT/HCPCS: 29880; J2250; J1100; J0690; J2405; J0171; J2001; J3010; J2704; J1170; J2371

== ENCOUNTER 2024-08-11 08:45 | Day surgery (SDC) | payer MEDICARE ==
[2024-04-07 09:05] VITALS: BMI 29.0
[~2024-08-11 08:45] MED LIST changes: -HYDROmorphone 0.5 MG/0.5 ML SYRINGE IVP PRN; -LACTATED RINGERS 1,000 ML IV SCH; -ONDANSETRON 4 MG/2 ML VIAL IVP ONE; -Pre Op ABX Message 1 EACH MISC MISCELLANE ONE
[2024-08-11 09:10] VITALS: TEMP 97.3
[2024-08-11] MEDS: IV FLUID CONTINUATION 1,000 ML IV ONE ×2 (09:25→09:45)
[2024-08-11] MEDS: LACTATED RINGERS 1,000 ML IV SCH (09:28)
[2024-08-11] MEDS: ONDANSETRON 4 MG/2 ML VIAL IVP STA (09:29)
[2024-08-11] MEDS ORDERED: LIDOCAINE 1% INJ 10MG/ML (20 ML MDV) ONE (09:45)
[2024-08-11] MEDS ORDERED: PROPOFOL 10 MG/ML 20 ML VIAL IV ONE (09:45)
--- NOTE | 2024-08-11 10:11 | P.PCN ---
Date of Procedure: 08/11/24 Procedure(s) Performed: BRIEF HISTORY: Patient is a 73-year-old pleasant white man scheduled for an elective colonoscopy as a part of screening for prior history of colon polyps PROCEDURE PERFORMED: Colonoscopy. PREOPERATIVE DIAGNOSIS: Screening for prior history of colon polyp. IV sedation per Anesthesia. PROCEDURE: After informed consent was obtained, the patient, was brought into the endoscopy unit. IV sedation was administered by Anesthesia under continuous monitoring. Digital rectal examination was normal. Initially the Olympus CF-160 flexible video colonoscope was then inserted in the rectum, gradually advanced into the cecum without any difficulty. Careful examination was performed as the scope was gradually being withdrawn. Ileocecal valve and the appendiceal orifice were visualized and appeared normal. Prep was excellent. Mucosa of the cecum, ascending colon, transverse colon, descending colon, sigmoid colon, and rectum appeared normal. Retroflexion was performed in the rectum and no lesions were seen. The patient tolerated the procedure well. IMPRESSION: Normal-appearing colon from rectum to cecum with no evidence of colorectal neoplasia. RECOMMENDATIONS: Findings of this examination were discussed with the patient as well as his family. He was advised to have repeat screening colonoscopy at age 81..
[2024-08-11 10:37] VITALS: BP 117/73; PULSE 64; RESP 17
== END 2024-08-11 10:57 | disposition home or self-care (01) ==
LOC: ORWHC2ENDO 08:45
PROVIDERS: ATTEND Internal Medicine Gastroenterology
DX: Z12.11 Encounter for screening for malignant neoplasm of colon (principal); J45.909 Unspecified asthma, uncomplicated; Z91.89 Other specified personal risk factors, not elsewhere classified; Z86.0100 Personal history of colon polyps, unspecified; Z88.0 Allergy status to penicillin
CPT/HCPCS: J2405; J2003; J2704; G0121; 45378